=== PATIENT | female | born 1985 | race Caucasian/White ===

== ENCOUNTER 2023-11-17 12:43 | Emergency (ER) | payer OTHER, SELFPAY ==
[2023-11-17 12:54] VITALS: BP 143/90; PULSE 127; RESP 20; TEMP 37.2; O2SAT 97; BMI 32.4
--- NOTE | 2023-11-17 13:51 | ED_ITS ---
HPI - General Adult General Chief complaint: Laceration/Wound Stated complaint: L hand laceration Time Seen by Provider: 11/17/23 12:45 Source: patient Mode of arrival: ambulatory Limitations: no limitations History of Present Illness HPI narrative: 38-year-old female coming in today with finger laceration. Patient was working with her horse when the horse pulled away and the metal clip on the blanket caught her finger. Denies any other injury. Tetanus shot was updated in 2013. Related Data Home Medications Medication Instructions Recorded Confirmed control pill 11/17/23 fexofenadine 180 mg tablet 180 mg PO DAILY 11/17/23 11/17/23 (Allergy Relief (fexofenadine)) Previous Rx's Medication Instructions Recorded cephalexin 500 mg capsule 500 mg PO Q6H 7 days #28 caps 11/17/23 Allergies Allergy/AdvReac Type Severity Reaction Status Date / Time No Known Drug Allergies Allergy Verified 11/17/23 12:54 Review of Systems Status of ROS: Reports: 6 or more systems reviewed and unremarkable except as noted in History and below PFSH PFS Social History Smoking Status: Never smoker How often do you have a drink containing alcohol: monthly or less AUDIT-C Alcohol total score: 1 Non-prescribed substance use: marijuana (any form) Exam Narrative: Exam Narrative: Well-nourished well-developed patient, anxious. Alert and oriented. Answers questions appropriately. Mood and affect are appropriate. Thoughts are goal oriented and rational. No tangential or magical thinking noted. Patient speaks in full sentences without needing to catch her breath. HEENT: Normocephalic atraumatic. Pupils are equally round reactive to light. Extraocular muscles are intact. Conjunctivae are moist without any icterus noted. Moist mucous membranes. Extremities: Left index finger has a laceration that extends from the base of the finger all the way to the tip of the finger in a snake like , winding pattern. She has full range of motion of the finger with flexion and extension. The laceration extends into the subcutaneous tissue but there is no bone or tendons visible. The tip of the finger the laceration sneha into a cervical that is about 3/4 complete, therefore there is a small flap of the tip of the finger. Skin: Well perfused. Const: Vital Signs, click to edit/add: Vital Signs - 24 hr 11/17/23 12:54 Temperature 98.9 F Pulse Rate [Pulse Oximeter] 127 H Respiratory Rate 20 Blood Pressure [Ri ght Upper Arm] 143/90 H Pulse Oximetry 97 Oxygen Delivery Me thod Room Air Course Course ED Course: Digital block was performed with 1% lidocaine, wound was explored and cleaned. Eighteen sutures with 3-0 Ethilon were placed with good skin approximation. Vital Signs Vital signs: Initial Vital Signs Temperature 98.9 F 11/17/23 12:54 Temperature Source Temporal Artery Scan 11/17/23 12:54 Pulse Rate 127 H 11/17/23 12:54 Respiratory Rate 20 11/17/23 12:54 Blood Pressure 143/90 H 11/17/23 12:54 Blood Pressure Mean 107 H 11/17/23 12:54 Blood Pressure Position Supine 11/17/23 12:54 Pulse Oximetry 97 11/17/23 12:54 Oxygen Delivery Method Room Air 11/17/23 12:54 Vital Signs Temperature 98.9 F 11/17/23 12:54 Pulse Rate 127 H 11/17/23 12:54 Respiratory Rate 20 11/17/23 12:54 Blood Pressure 143/90 H 11/17/23 12:54 Pulse Oximetry 97 11/17/23 12:54 Oxygen Delivery Method Room Air 11/17/23 12:54 Temperature 98.9 F 11/17/23 12:54 Pulse Rate 127 H 11/17/23 12:54 Respiratory Rate 20 11/17/23 12:54 Blood Pressure 143/90 H 11/17/23 12:54 Pulse Oximetry 97 11/17/23 12:54 Oxygen Delivery Method Room Air 11/17/23 12:54 Medical Decision Making MDM Narrative Medical decision making narrative: Large laceration of the pointer finger of the left hand. Sutured in the ED today. We discussed wound hygiene, signs symptoms of infection reasons for follow-up. Suture removal in approximate 1 week with primary care. Patient will be placed on Keflex and tetanus shot updated in the ER today. Discharge Plan Discharge Clinical Impression: Laceration Patient Disposition: Home, Self-Care Condition: Improved Additional Instructions: Take all antibiotics as prescribed. Keep finger dry and clean. Okay to shower like he normally would but do not soak the finger such as doing dishes or going swimming. Watch for signs of infection which would include increased redness or purulent drainage from the laceration. If this occurs follow-up with your doctor right away or return to the ER. Sutures should be removed in approximately 1 week with your primary care provider. Prescriptions: New cephalexin 500 mg capsule 500 mg PO Q6H 7 Days Qty: 28 0RF No Action fexofenadine [Allergy Relief (fexofenadine)] 180 mg tablet 180 mg PO DAILY control pill Follow Up/Referrals: Provider,Not a Local [Primary Care Provider] - Stand Alone Forms: Welcome Real-time Info Instructions
[2023-11-17 14:00] VITALS: BP 143/81; PULSE 109; RESP 18; O2SAT 100
[2023-11-17] MEDS: TETANUS/DIPHTH/PERTUSSIS 0.5 ML SYRINGE IM (14:02)
--- NOTE | 2023-11-17 14:15 | ED.NURSE ---
dr. ruvalcaba sutured L finger. bacitracin, telfa and gauze applied to L finger.
== END 2023-11-17 14:17 | disposition home or self-care (01) ==
PROVIDERS: Emergency Provider Family Medicine
DX: S61.211A Laceration without foreign body of left index finger without damage to nail, initial encounter (principal); W26.9XXA Contact with unspecified sharp object(s), initial encounter; Z23 Encounter for immunization
CPT/HCPCS: 12001; 90471; 90715; 99283; 99284